=== PATIENT | male | born 1985 | race African-American/Black ===

== ENCOUNTER → 2019-12-30 | Outpatient (CLI) | payer BC ==
[~2019-12-30] MED LIST: CRUTCHES; LORTAB 5/500 501 TAB PO; NO HOME MEDICATIONS; NORCO 325 MG-51 TAB PO; NORCO 325 MG-7.1 TAB PO; PHENERGAN 25 TA25 MG PO; PHENERGAN25 MG RC
== END ==
LOC: COL.RAD 12:57
DX: M47.817 Spondylosis without myelopathy or radiculopathy, lumbosacral region (principal); M48.07 Spinal stenosis, lumbosacral region; M51.26 Other intervertebral disc displacement, lumbar region; R31.9 Hematuria, unspecified

== ENCOUNTER 2021-11-20 08:29 | Emergency (ER) | payer BC ==
[~2021-11-20] VITALS: Ht 182.9 cm; Wt 125.0 kg
[2021-11-20 08:35] VITALS: TEMP 97.7
[2021-11-20] MEDS ORDERED: NORVASC 10MG10 MG PO (08:53)
[2021-11-20 08:57] LABS: BASO % 0.5 % (0.0-2.0); EOS # 0.3 K/mm3 (0.0-0.7); EOS % 4.1 % (0.0-4.0); GRAN # 4.5 K/mm3 (1.4-6.5); HEMATOCRIT 42.7 % (42.0-52.0); LYMPH # 2.6 K/mm3 (1.2-3.4); LYMPH % 32.3 % (20.0-51.0); MEAN CELL VOLUME 77 fl (80.0-100.0); MEAN CORPUSCULAR HEMOGLOBIN 27 pg (27-31); MEAN CORPUSCULAR HGB CONC 35 g/dl (33.0-37.0); MEAN PLATELET VOLUME 9.2 fl (7.4-10.4); MONO # 0.6 K/mm3 (0.1-0.6); MONO % 7.7 % (1.7-9.3); PLATELET COUNT 260 K/mm3 (130-400); RED BLOOD COUNT 5.52 M/mm3 (4.20-5.60); REDCELL DISTRIBUTION WIDTH-CV 13.8 % (11.5-14.5)
[2021-11-20 09:10] LABS: ALANINE AMINOTRANSFERASE 23 U/L (0-55); ALBUMIN 4.2 gm/dL (3.5-5.0); ALKALINE PHOSPHATASE 51 U/L (40-150); ANION GAP 10 mmol/L (7-16); AST,SGOT 19 U/L (5-34); BILIRUBIN,TOTAL 0.6 mg/dL (0.2-1.2); BLOOD UREA NITROGEN 10 mg/dL (9-21); CALCIUM 8.8 mg/dL (8.4-10.2); CARBON DIOXIDE 21 mmol/L (22-29); CHLORIDE 108 mmol/L (98-107); CREATININE, serum 1.03 mg/dL (0.72-1.25); GLUCOSE 91 mg/dL (70-99); SODIUM 139 mmol/L (136-145); TOTAL PROTEIN 7.7 gm/dL (6.2-8.1)
[2021-11-20 09:17] LABS: TROPONIN-I < 0.010 ng/mL (0.00-0.033)
[2021-11-20 09:18] LABS: PROTHROMBIN TIME 11.1 SECONDS (9.7-12.8)
[2021-11-20 09:21] LABS: PARTIAL THROMBOPLASTIN TIME 30.1 SECONDS (26.0-37.0)
[2021-11-20 09:57] LABS: D-DIMER < 200.00 ng/mLDDu (200-230)
[2021-11-20 11:09] VITALS: BP 134/89; PULSE 81
== END 2021-11-20 11:15 | disposition home or self-care (01) ==
LOC: COL.ER 08:29
PROVIDERS: Family Medicine
DX: K21.9 Gastro-esophageal reflux disease without esophagitis (principal)
CPT/HCPCS: C9113